=== PATIENT | female | born 1990 | race Caucasian/White ===

== ENCOUNTER 2017-01-22 16:24 | Inpatient (IN) | payer OTHER ==
[~2017-01-22] VITALS: Ht 165.1 cm; Wt 66.3 kg
[2017-01-22] MEDS ORDERED: ACET-1311 PO (17:11)
[2017-01-22] MEDS ORDERED: GUAISYP4 PO (17:12)
[2017-01-22] MEDS ORDERED: NF406 PO (17:13)
[2017-01-22] MEDS ORDERED: MoRPHine SULFATE 4 MG/ML 1 ML CARP\\VIAL IV STA (17:19)
[2017-01-22] MEDS ORDERED: SODIUM CHLORIDE 0.9% 1000ML 1,000 ML IV STA ×2 (17:19→19:21)
[2017-01-22] MEDS ORDERED: ONDANSETRON INJ 2 MG/ML 2 ML VIAL IV STA (17:19)
--- NOTE | 2017-01-22 17:47 | DIAGNOSTIC IMAGING REPORT ---
CHEST ONE VIEW PORTABLE CLINICAL HISTORY: Fever. Shortness of breath. 18 weeks . COMPARISON STUDY: No previous studies for comparison. TECHNIQUE: The abdomen and pelvis were double shielded due to portable upright AP chest radiograph was obtained. FINDINGS: Kyphotic positioning is noted. Lung volumes are normal. There is no consolidation. There is no evidence of pulmonary edema. Cardiomediastinal silhouette is normal. No pneumothorax or pleural effusion is identified. IMPRESSION: No acute cardiopulmonary findings. Electronically signed by: Vinh Trujillo M.D. 01/22/2017 5:45 PM Dictated Date/Time: 01/22/2017 5:44 PM
[2017-01-22] MEDS ORDERED: ADENOSINE IV SOLN 3 MG/ML 2 ML VIAL ONE (18:16)
[2017-01-22] MEDS ORDERED: VANCOMYCIN INJ 1,000 MG in SODIUM CHLORIDE 0.9% 250ML 250 ML IV STA (18:28)
[2017-01-22] MEDS ORDERED: CEFTRIAXONE SOD INJ 1 GM ADDVIAL IV STA (18:28)
[2017-01-22 18:29] LABS: BUN/CREATININE RATIO 12.5 (10-20); CALCIUM 9.1 mg/dl (8.5-10.1); CREATININE 1.5 mg/dl (0.60-1.20)
[2017-01-22 18:40] LABS: MEAN CELL VOLUME 80.5 fL (80-100); MEAN CORPUSCULAR HEMOGLOBIN 29.3 pg (25-34); MEAN CORPUSCULAR HGB CONC 36.4 g/dl (32-36); MEAN PLATELET VOLUME 10.6 fL (7.4-10.4); PLATELET COUNT 261 K/uL (130-400); WHITE BLOOD COUNT 13.86 K/uL (4.8-10.8)
[2017-01-22 18:41] LABS: BASO % 0.2 %; BASO ABS # 0.03 K/uL (0-0.2); COMPLETE YES; DOHLE BODIES 1+; EOS % 0.1 %; IG% 7.2 %; LARGE PLATELETS 1+; LYMPH % 4.8 %; LYMPH ABS # 0.66 K/uL (1.2-3.4); MONO % 2.4 %; NEUT % 85.3 %; PLT ESTIMATE NORMAL; TOXIC GRANULATION 1+
[2017-01-22] MEDS ORDERED: VANCOMYCIN 1GM/270ML NSS ONE (18:57)
[2017-01-22 19:07] LABS: URINE APPEARANCE TURBID (CLEAR); URINE COLOR DK YELLOW; URINE EPITHELIAL CELL AUTO >30 /lpf (0-5); URINE NITRITE POS (NEG); URINE SPECIFIC GRAVITY 1.023 (1.000-1.030); UROBILINOGEN NEG (NEG)
[2017-01-22 19:12] LABS: MANUAL MICROSCOPIC REQUIRED? NO; REVIEW REQ? YES; URINE BILIRUBIN NEG (NEG)
[2017-01-22] MEDS ORDERED: SODIUM CHLORIDE 0.9% 500ML 500 ML IV STA (19:21)
[2017-01-22 19:24] LABS: URINE PATH CASTS 0-3 GRANULAR CASTS /lpf (0)
--- NOTE | 2017-01-22 20:07 | DIAGNOSTIC IMAGING REPORT ---
BILATERAL LOWER EXTREMITY VENOUS DOPPLER CLINICAL HISTORY: Tachycardia. Shortness of breath. 18 weeks . COMPARISON STUDY: No previous studies for comparison. TECHNIQUE: Sonography of the deep venous system of the bilateral lower extremities was performed. Compression and augmentation were evaluated. FINDINGS: The bilateral common femoral, superficial femoral and popliteal veins were compressible. Augmentation was normal. Flow was shown within the deep calf vessels. IMPRESSION: No evidence of deep venous thrombus within the bilateral lower extremities. Electronically signed by: Vinh Trujillo M.D. 01/22/2017 8:06 PM Dictated Date/Time: 01/22/2017 8:05 PM
--- NOTE | 2017-01-22 20:12 | DIAGNOSTIC IMAGING REPORT ---
ABDOMEN COMPLETE (US) CLINICAL HISTORY: Right flank pain, fever, nausea and vomiting. 8 weeks . COMPARISON STUDY: No previous studies for comparison. FINDINGS: The liver is sonographically normal. No gallbladder wall thickening is present. There are no gallstones. There is no biliary ductal dilatation. The pancreas is obscured by overlying bowel gas. The spleen is mildly enlarged, measuring 15.6 cm in maximal dimension. There is mild right hydronephrosis. No calculi are identified by sonography. The left kidney is normal. There is no left hydronephrosis. The left ureteral jet was visualized. The right ureteral jet was not visualized. IMPRESSION: 1. Mild right hydronephrosis. Nonvisualization of the right ureteral jet. Slight increased echogenicity of the right kidney. 2. No left hydronephrosis. 3. No gallstones or biliary ductal dilatation. 4. Obscured pancreas due to overlying bowel gas. Electronically signed by: Vinh Trujillo M.D. 01/22/2017 8:10 PM Dictated Date/Time: 01/22/2017 8:08 PM
[2017-01-22] MEDS ORDERED: ACETAMINOPHEN 325 MG TAB PO PRN ×2 (20:15→21:30)
[2017-01-22 20:35] LABS: INFLUENZA A PCR Neg for Influ A (NEG); INFLUENZA B PCR Neg for Influ B (NEG)
[2017-01-22 20:46] LABS: PARTIAL THROMBOPLASTIN RATIO 1.5
[2017-01-22] MEDS ORDERED: ACETAMINOPHEN 325 MG TAB PO STA (20:50)
[2017-01-22 21:00] LABS: MAGNESIUM 2.2 mg/dl (1.8-2.4); THYROID STIMULATING HORMONE 0.738 uIu/ml (0.300-4.500)
[2017-01-22 21:25] VITALS: BP 104/69; PULSE 125; TEMP 36.8; O2SAT 97; Ht 165.1 cm; Wt 66.3 kg
[2017-01-22] MEDS ORDERED: NSS + 20MEQ KCL 1000ML 1,000 ML IV SCH (21:30)
[2017-01-22 21:33] VITALS: O2SAT 97
[2017-01-22] MEDS ORDERED: POTASSIUM CHLORIDE 10 MEQ TABCR PO STA (21:34)
[2017-01-22] MEDS ORDERED: METRONIDAZOLE / NSS 500 MG in PREMIXED NSS 100 ML IV ONE (21:39)
[2017-01-22] MEDS ORDERED: ONDANSETRON INJ 2 MG/ML 2 ML VIAL IV PRN (21:45)
[2017-01-22] MEDS ORDERED: ACETAMINOPHEN/CODEINE 300/30MG TAB PO PRN (21:45)
[2017-01-22] MEDS ORDERED: NSS + 20MEQ KCL 1000ML 1,000 ML IV ONE (21:45)
[2017-01-22] MEDS ORDERED: AZITHROMYCIN 250 MG TAB PO STA (21:46)
[2017-01-22 23:46] VITALS: BP 92/55; PULSE 104; TEMP 36.4; O2SAT 96
--- NOTE | 2017-01-23 01:29 | GYNECOLOGICAL CONSULTATION ---
DATE OF CONSULTATION: 01/22/2017 REASON FOR CONSULT: Admitted for sepsis/UTI and at 18 weeks. HISTORY OF PRESENT ILLNESS: The patient is a 26-year-old G2, P1-0-0-1 at 18 weeks and 1 day of gestation by last menstrual period of 09/17/2016. She has been having fever, cough and flu symptoms as well as nausea, vomiting and diarrhea for the last 5 days. She presented to her primary care today and she was recommended to come to ER due to the fever and tachycardia. She states she has been feeling flank pain, low back pain for weeks. She was treated for UTI on 12/15/2016, when her urine culture was positive for E. coli. She was on Macrobid for 10 days. She had a repeat culture on January 05, which was contaminated with karoline and revealed lactobacillus species. Currently she denies any symptoms of UTI including dysuria, frequency, urgency, color change in urine. She denies any cramping lower abdominal pain, vaginal discharge, itching, burning, spotting or vaginal bleeding. She reports movements. She denies any sick contact at home. She has been in good health otherwise. She was started on Tamiflu on January 18 for suspected flu, but her symptoms remained and her influenza cultures came negative today. Now she is being admitted under medicine for sepsis, possible UTI, kidney stone and gastroenteritis. She was placed on multiple antibiotics and she has been on telemetry. Her has been uncomplicated except above. She has not had an ultrasound during this . She was dated by her LMP which she was certain and regular. PAST MEDICAL HISTORY: As above. She denies any medical problems. PAST SURGICAL HISTORY: [place] teeth extraction. MEDICATIONS: vitamins and Tamiflu 75 mg. ALLERGIES: No known drug allergies. SOCIAL HISTORY: The patient is . She denies smoking, alcohol, or drug use. GYNECOLOGIC HISTORY: The patient denies any history of STDs including chlamydia, gonorrhea, herpes. She has been with same partner. OBSTETRICAL HISTORY: This is her second . She had full-term spontaneous vaginal delivery in September 2015, baby was a boy and viable without any complications. LABORATORIES: Her blood type is A positive, antibody screen negative. Urine culture was positive for E. coli. Rubella titer positive, RPR nonreactive, hepatitis B surface antigen negative, HIV negative. H\T\H was 13/36, platelets 245. GC, chlamydia cultures were negative. LABORATORY DATA: For today, white count is 13.8, H\T\H is 12/33. APTT is 39.6, elevated. PT ratio is 1.5. Chemistry: Her creatinine is 1.5. Her ALT, AST are normal. Lactic acid is 2.1, magnesium 2.2 and TSH is 0.7. Her urine shows 3+ protein, 1+ ketone, 3+ blood, nitrite positive, leukocyte esterase large positive, more than 30 white blood cells and red blood cells and positive for hyaline casts, granular casts and yeast. Serology is negative for influenza A and B. Her urine culture, blood culture are pending. IMAGING STUDIES: Her Doppler ultrasound of lower extremities are negative for DVT. She had abdominal ultrasound which showed mild right hydronephrosis. No ureteral jet on the right side. No left hydronephrosis, no gallstones or biliary duct dilatation. PHYSICAL EXAMINATION: GENERAL: The patient is alert, oriented x3, not in acute distress. VITAL SIGNS: Her temperature is 36.4, pulse is 120, respirations 18, blood pressure is 95/59, pulse ox is 97 on room air. CARDIOVASCULAR SYSTEM: S1, S2; RRR. Tachycardic. LUNGS: Clear to auscultation bilaterally. ABDOMEN: Soft, nontender, gravid, about 18 weeks' size. heart rate is 160. EXTREMITIES: Nontender, no edema. ASSESSMENT AND PLAN: The patient is a 26-year-old G2, P1-0-0-1 at 18 weeks and 1 day of gestation, admitted for possible urinary tract infection, kidney stones and sepsis. On telemetry and Multiple IV antibiotics ordered by medicine. Her blood and urine cultures are pending . Previable with no issues. heart rate is reassuring. Agree with plan, monitor and treat for urinary tract infection and symptomatic treatment for possible stones. Strain urine, obtain renal retroperitoneal ultrasound I will order OB ultrasound for dating and anatomy scan. We will follow up with daily heart rates. I discussed the antibiotics and safety of medications with Dr. Pham. All questions were answered. Thank you for this consult. NOEMY
[2017-01-23] MEDS ORDERED: TAMSULOSIN HCL 0.4 MG CAP PO ONE (01:56)
[2017-01-23 03:20] VITALS: BP 93/57; PULSE 104; TEMP 36.4; O2SAT 97
[2017-01-23 04:24] LABS: HEMATOCRIT 29.1 % (37-47); MEAN CORPUSCULAR HGB CONC 35.4 g/dl (32-36); MEAN PLATELET VOLUME 10.4 fL (7.4-10.4); PLATELET COUNT 245 K/uL (130-400); RED BLOOD COUNT 3.55 M/uL (4.2-5.4); WHITE BLOOD COUNT 12.29 K/uL (4.8-10.8)
[2017-01-23 04:45] LABS: COMPLETE YES; DOHLE BODIES 1+; ECHINOCYTES 1+; LYMPHOCYTE % 11.4 %; MYELOCYTE % 1.8 %; NEUTROPHILS % 85.9 %
[2017-01-23 04:55] LABS: BLOOD UREA NITROGEN 17 mg/dl (7-18); BUN/CREATININE RATIO 15.7 (10-20); CALCIUM 7.8 mg/dl (8.5-10.1); CARBON DIOXIDE 14 mmol/L (21-32); CHLORIDE 109 mmol/L (98-107); GLUCOSE 74 mg/dl (70-99); POTASSIUM 3.8 mmol/L (3.5-5.1); SODIUM 139 mmol/L (136-145)
--- NOTE | 2017-01-23 05:01 | HISTORY & PHYSICAL EXAMINATION ---
DATE OF ADMISSION: 01/22/2017 Patient has no primary care doctor. She intends to follow up at [facility] for PCP service upon discharge. CHIEF COMPLAINT: Fever, chills, right-sided pain. HISTORY OF PRESENT ILLNESS: No significant medical history. Patient currently 18 weeks . A week ago, the patient noted dry cough symptoms, fever, nausea, vomiting. No aspiration. Right upper quadrant pain, achy, going to the back. No dysuria. Loose stools noted. Recent course of outpatient antibiotics for possible UTI. Seen at [facility]. Treated for possible flu, not better. Patient denies chest pain but feels short of breath which she attributes to her fast heartbeat. In the Emergency Room, the patient received vancomycin and ceftriaxone for possible sepsis. MEDICAL HISTORY: As above. SURGERIES: Dental surgery. HOME MEDICATIONS: Tamiflu, Tylenol. ALLERGIES: No known drug allergies. FAMILY HISTORY: Kidney stones. PERSONAL AND SOCIAL HISTORY: Nonsmoker, no chronic intake of alcoholic beverages. 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 REVIEW OF SYSTEMS: As per HPI, all other ROS negative. PHYSICAL EXAMINATION: VITAL SIGNS: Blood pressure was noted to be 105/57, pulse rate 107, RR 22, temp 36.7, sats 100 on 2 liters. GENERAL: Noted to be uncomfortable, anxious, minimal respiratory distress. SKIN: Normal color. HEENT: [place] palpebral conjunctivae. Dry mucosa. NECK: No JVD. supple CHEST: Decreased breath sounds. HEART: Tachycardic. ABDOMEN: Right-sided tenderness BACK R flank tenderness. EXTREMITIES: No edema, no tenderness. NEUROLOGIC: No gross focality. LABORATORY DATA: Hemoglobin was noted to be 12, hematocrit 30, white cell count 13.8, platelets 261. Sodium 130, potassium 3, chloride 98, CO2 13, BUN 90, creatinine 1.5, glucose was noted to be 88. Lactic acid was 2.1. Abdominal ultrasound showed mild right hydronephrosis, nonvisualization of right ureter. UA, nitrite positive, urine WBC positive. Chest x-ray showed no acute cardiopulmonary findings. EKG, sinus tachycardia. LE Venous Dopplers, no DVT. ASSESSMENT: 1. Chest pain, shortness of breath rule out pulmonary embolism. 2. Sepsis. Possible sources : complicated UTI, poss kidney stone. atypical pneumonia. diarrhea ro Cdifficile, recent outpx antibiotics. 3. Acute renal failure secondary to illness, obstructive uropathy. 4. , 18 weeks gestation. 5. Hypokalemia secondary to emesis/diarrhea. PLAN: PCU. V/Q scan in the morning to rule out PE. Replace potassium. Check mag. Follow lactic acid. IV fluids. ff renal function Ceftriaxone for complicated UTI. Urology consult possible renal colic. Azithromycin for possible atypical pneumonia. Stool C. diff. Flagyl for presumptive C. diff in light of sepsis criteria. DC Flagyl if stool cdif negative [employer] consult for eval. DVT prophylaxis, on SCDs. Full code. ADDENDUM Case discussed with urologist on-call, Dr. Davis. He agrees w/ plan to do a CAT of the abdomen and pelvis to definitively rule out a kidney stone. May need transfer to a tertiary center if kidney stone found. NGUYEND
[2017-01-23] MEDS: NSS + 20MEQ KCL 1000ML 1,000 ML IV SCH ×2 (05:34→13:00)
--- NOTE | 2017-01-23 07:17 | DIAGNOSTIC IMAGING REPORT ---
CT SCAN OF THE ABDOMEN AND PELVIS WITHOUT CONTRAST CLINICAL HISTORY: Right flank pain. COMPARISON STUDY: No previous studies for comparison. TECHNIQUE: CT scan of the abdomen and pelvis was performed from the lung bases to the proximal femurs. Images are reviewed in the axial, sagittal, and coronal planes. IV contrast was not administered for this examination. CT DOSE: 643.48 mGy.cm FINDINGS: Lower chest: There are bibasal atelectatic changes. Liver: The unenhanced liver is normal in size, contour, and attenuation. There is no intrahepatic biliary ductal dilatation. Gallbladder: Unremarkable. Spleen: Mild splenomegaly measuring 14 cm Pancreas: Unremarkable. Adrenal glands: Unremarkable. Kidneys: There is right-sided hydronephrosis and right-sided perinephric stranding. There is right ureteral dilatation. There is an 8 mm calculus at the level the right ureteral vesicle junction. There are punctate bilateral renal calculi. Bowel: There are no transition zones indicate bowel obstruction. There is no acute diverticulitis. There are no findings to indicate acute appendicitis. Peritoneum: There is no intraperitoneal free air or abdominal ascites. There is a tiny fat-containing umbilical hernia Vasculature: The abdominal aorta is normal in course and caliber. Adenopathy: None. Pelvic viscera: There is a gravid uterus. Skeletal structures: No destructive osseous lesions are seen. IMPRESSION: 1. 8 mm calculus at the level of the right ureterovesical junction with secondary obstructive changes 2. Gravid uterus 3. Mild splenomegaly 4. Bibasilar atelectasis 5. Bilateral nephrolithiasis 6. No evidence of bowel obstruction. No evidence of free air Electronically signed by: Padilla Choi M.D. 01/23/2017 7:16 AM Dictated Date/Time: 01/23/2017 7:11 AM
--- NOTE | 2017-01-23 07:20 | Progress Note ---
Internal Med Progress Note Date of Service: Jan 23, 2017. Provider Documentation: AM developments : 1. Received call from nuclear med requesting VQ scan be cancelled to rule out PE as per radiologist's recommendations. Dr. Choi recommends CT PE study (w/ lead shield to decrease radiation exposure). 2. 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 Quintero) about px.. Service would be happy to accept px for poss emergent stent placement. Transfer unfortunately precluded by current [place] [facility] Requests that acceptance at other tertiary facilities be sought at this time. Will enlist help of [facility] Case Management. Will relay to AM provider. [facility] requesting for update on px disposition. Vital Signs: Date Time Temp Pulse Resp B/P Pulse Ox O2 Delivery O2 Flow Rate FiO2 01/23/17 08:14 36.4 126 20 106/71 98 Room Air 01/23/17 08:00 Room Air 01/23/17 04:01 Room Air 01/23/17 03:20 36.4 104 18 93/57 97 Room Air 01/23/17 00:02 Room Air 01/22/17 23:46 36.4 104 15 92/55 96 Room Air 01/22/17 22:00 Room Air 01/22/17 21:33 36.4 120 18 95/59 97 01/22/17 21:25 36.8 125 20 104/69 97 Room Air 01/22/17 18:54 37.7 137 16 105/57 100 Nasal Cannula 2.0 01/22/17 18:18 143 24 111/50 99 Nasal Cannula 2.0 01/22/17 17:55 98 Room Air 01/22/17 17:54 165 01/22/17 16:39 36.3 22 106/61 100 Room Air Lab Results: Results Past 24 Hours Test 01/22/17 17:55 01/22/17 20:32 01/23/17 04:19 Range/Units White Blood Count 13.86 12.29 4.8-10.8 K/uL Red Blood Count 4.10 3.55 4.2-5.4 M/uL Hemoglobin 12.0 10.3 12.0-16.0 g/dL Hematocrit 33.0 29.1 37-47 % Mean Corpuscular Volume 80.5 82.0 80-100 fL Mean Corpuscular Hemoglobin 29.3 29.0 25-34 pg Mean Corpuscular Hemoglobin Concent 36.4 35.4 32-36 g/dl Platelet Count 261 245 130-400 K/uL Mean Platelet Volume 10.6 10.4 7.4-10.4 fL Neutrophils (%) (Auto) 85.3 % Lymphocytes (%) (Auto) 4.8 % Monocytes (%) (Auto) 2.4 % Eosinophils (%) (Auto) 0.1 % Basophils (%) (Auto) 0.2 % Neutrophils # (Auto) 11.82 1.4-6.5 K/uL Lymphocytes # (Auto) 0.66 1.2-3.4 K/uL Monocytes # (Auto) 0.33 0.11-0.59 K/uL Eosinophils # (Auto) 0.02 0-0.5 K/uL Basophils # (Auto) 0.03 0-0.2 K/uL RDW Standard Deviation 38.9 41.9 36.4-46.3 fL RDW Coefficient of Variation 13.3 13.7 11.5-14.5 % Immature Granulocyte % (Auto) 7.2 % Immature Granulocyte # (Auto) 1.00 0.00-0.02 K/uL Toxic Granulation 1+ Dohle Bodies 1+ 1+ Platelet Estimate NORMAL Large Platelets 1+ Activated Partial Thromboplast Time 39.6 21.0-31.0 SECONDS Partial Thromboplastin Ratio 1.5 Sodium Level 132 139 136-145 mmol/L Potassium Level 3.0 3.8 3.5-5.1 mmol/L Chloride Level 98 109 98-107 mmol/L Carbon Dioxide Level 13 14 21-32 mmol/L Anion Gap 21.0 16.0 3-11 mmol/L Blood Urea Nitrogen 19 17 7-18 mg/dl Creatinine 1.50 1.10 0.60-1.20 mg/dl Est Creatinine Clear Calc Drug Dose 51.1 69.7 ml/min Estimated GFR () 55.2 80.2 Estimated GFR (Non- 47.6 69.2 BUN/Creatinine Ratio 12.5 15.7 10-20 Random Glucose 88 74 70-99 mg/dl Lactic Acid Level 2.1 0.6 0.4-2.0 mmol/L Calcium Level 9.1 7.8 8.5-10.1 mg/dl Magnesium Level 2.2 1.8-2.4 mg/dl Total Bilirubin 0.6 0.2-1 mg/dl Direct Bilirubin 0.2 0-0.2 mg/dl Aspartate Amino Transf (AST/SGOT) 25 15-37 U/L Alanine Aminotransferase (ALT/SGPT) 28 12-78 U/L Alkaline Phosphatase 155 45-117 U/L Total Protein 8.0 6.4-8.2 gm/dl Albumin 2.4 3.4-5.0 gm/dl Lipase 67 73-393 U/L Thyroid Stimulating Hormone (TSH) 0.738 0.300-4.500 uIu/ml Neutrophils % (Manual) 85.9 % Lymphocytes % (Manual) 11.4 % Monocytes % (Manual) 0.9 % Myelocytes % 1.8 % Neutrophils # (Manual) 10.56 1.4-6.5 K/uL Total Absolute Neutrophils 10.56 1.4-6.5 K/uL Lymphocytes # (Manual) 1.40 1.2-3.4 K/uL Total Absolute Lymphocytes 1.40 1.2-3.4 K/uL Monocytes # (Manual) 0.11 0.11-0.59 K/uL Myelocytes # 0.22 0-0 K/uL Echinocytes 1+ Troponin I < 0.015 0-0.045 ng/ml Microbiology Results 01/22/17 Blood Culture, Received Pending 01/22/17 Blood Culture, Received Pending 01/22/17 Urine Culture - Preliminary, Resulted Escherichia Coli
--- NOTE | 2017-01-23 07:52 | DIAGNOSTIC IMAGING REPORT ---
COMP>14 WEEKS SINGLE CLINICAL HISTORY: tract infection, sepsis. COMPARISON STUDY: No previous studies for comparison. FINDINGS: A single live fetus in variable presentation was identified. The placenta is anterolateral. The BPD measures 43 mm, the head circumference 157 mm, abdominal discomfort 126 mm, and the femur 26 mm. These measurements correspond to an estimated postmenstrual age of 18 weeks 2 days +/- 10 days. The estimated weight is 220 +/- 30 grams. The amount of fluid index was 15.8 cm. The maternal cervical length was 3.3 cm. The heart rate was 139. The intracranial contents were unremarkable. A four-chamber heart was visualized. A stomach was visualized. 2. kidneys were visualized. No anterior abdominal wall abnormalities were identified. The bladder was visualized. No spine abnormalities were demonstrated. IMPRESSION: Single live fetus in variable presentation. The estimated postmenstrual age is 18 weeks 2 days +/- 10 days. Electronically signed by: Padilla Choi M.D. 01/23/2017 7:51 AM Dictated Date/Time: 01/23/2017 7:47 AM
[2017-01-23 08:14] VITALS: BP 106/71; PULSE 126; TEMP 36.4; O2SAT 98
--- NOTE | 2017-01-23 08:30 | Urology Consultation ---
History General Date of Service: Jan 23, 2017. Chief Complaint: fever, right ureteral stone Primary Care Physician: No Doctor, Assigned Pt seen a urologist before?: No History of Present Illness 26 yo female, 18 weeks , presents to [facility] with c/o fevers as high as 105F x 2 days and several weeks of UTI symptoms and right flank pain. CT scan showing an 8mm right UVJ stone. She has no previous hx of stones. White count is 12.29. Cr is normal. Temperature as high as 37.7C on admission. She reports nausea and right flank pain this morning. Denies vomiting. Denies dysuria or hematuria. Imaging Imaging: CT Laboratory Last 24 Hours Test 01/22/17 17:55 01/22/17 20:32 01/23/17 04:19 White Blood Count 13.86 K/uL 12.29 K/uL Red Blood Count 4.10 M/uL 3.55 M/uL Hemoglobin 12.0 g/dL 10.3 g/dL Hematocrit 33.0 % 29.1 % Mean Corpuscular Volume 80.5 fL 82.0 fL Mean Corpuscular Hemoglobin 29.3 pg 29.0 pg Mean Corpuscular Hemoglobin Concent 36.4 g/dl 35.4 g/dl Platelet Count 261 K/uL 245 K/uL Mean Platelet Volume 10.6 fL 10.4 fL Neutrophils (%) (Auto) 85.3 % Lymphocytes (%) (Auto) 4.8 % Monocytes (%) (Auto) 2.4 % Eosinophils (%) (Auto) 0.1 % Basophils (%) (Auto) 0.2 % Neutrophils # (Auto) 11.82 K/uL Lymphocytes # (Auto) 0.66 K/uL Monocytes # (Auto) 0.33 K/uL Eosinophils # (Auto) 0.02 K/uL Basophils # (Auto) 0.03 K/uL RDW Standard Deviation 38.9 fL 41.9 fL RDW Coefficient of Variation 13.3 % 13.7 % Immature Granulocyte % (Auto) 7.2 % Immature Granulocyte # (Auto) 1.00 K/uL Toxic Granulation 1+ Dohle Bodies 1+ 1+ Platelet Estimate NORMAL Large Platelets 1+ Activated Partial Thromboplast Time 39.6 SECONDS Partial Thromboplastin Ratio 1.5 Sodium Level 132 mmol/L 139 mmol/L Potassium Level 3.0 mmol/L 3.8 mmol/L Chloride Level 98 mmol/L 109 mmol/L Carbon Dioxide Level 13 mmol/L 14 mmol/L Anion Gap 21.0 mmol/L 16.0 mmol/L Blood Urea Nitrogen 19 mg/dl 17 mg/dl Creatinine 1.50 mg/dl 1.10 mg/dl Est Creatinine Clear Calc Drug Dose 51.1 ml/min 69.7 ml/min Estimated GFR () 55.2 80.2 Estimated GFR (Non- 47.6 69.2 BUN/Creatinine Ratio 12.5 15.7 Random Glucose 88 mg/dl 74 mg/dl Lactic Acid Level 2.1 mmol/L 0.6 mmol/L Calcium Level 9.1 mg/dl 7.8 mg/dl Magnesium Level 2.2 mg/dl Total Bilirubin 0.6 mg/dl Direct Bilirubin 0.2 mg/dl Aspartate Amino Transf (AST/SGOT) 25 U/L Alanine Aminotransferase (ALT/SGPT) 28 U/L Alkaline Phosphatase 155 U/L Total Protein 8.0 gm/dl Albumin 2.4 gm/dl Lipase 67 U/L Thyroid Stimulating Hormone (TSH) 0.738 uIu/ml Neutrophils % (Manual) 85.9 % Lymphocytes % (Manual) 11.4 % Monocytes % (Manual) 0.9 % Myelocytes % 1.8 % Neutrophils # (Manual) 10.56 K/uL Total Absolute Neutrophils 10.56 K/uL Lymphocytes # (Manual) 1.40 K/uL Total Absolute Lymphocytes 1.40 K/uL Monocytes # (Manual) 0.11 K/uL Myelocytes # 0.22 K/uL Echinocytes 1+ Troponin I < 0.015 ng/ml Past History no pertinent history Past Surgical History: other (dental surgery) Family History nephrolithiasis Social History Hx Tobacco Use In Past Year?: No Smoking: non-smoker Alcohol: no current use Drug use: none Marital status: Housing status: lives with family Occupation status: employed Allergies Coded Allergies: No Known Allergies (Unverified , 01/22/17) Medications Home Medications: Home Meds and Scripts Medications Dose Route/Sig Max Daily Dose Days Date Category Tamiflu (Oseltamivir Phosphate) 75 Mg Cap 75 Mg PO BID 01/22/17 Reported Robitussin-Ac Syrup (Codeine Phosphate/Guaifenesin) Syrp 20 Ml PO Q4H PRN 01/22/17 Reported Tylenol (Acetaminophen) 325 Mg Tab 650 Mg PO Q4H PRN 01/22/17 Reported Inpatient Medications: Current Inpatient Medications Medications (Trade) Dose Ordered Sig/Ivory Route Start Time Stop Time Status Last Admin Dose Admin Acetaminophen (Tylenol Tab) 650 mg Q6H PRN PO 01/22/17 20:15 Acetaminophen 650 mg 650 mg Q4H PRN PO 01/22/17 21:30 02/21/17 21:29 Metronidazole/Prmx (Flagyl / Nss/ Premixed Nss) 100 ml @ 100 mls/hr Q8H IV 01/23/17 08:45 02/02/17 08:44 01/23/17 07:36 100 MLS/HR Azithromycin (Zithromax Tab) 250 mg QAM PO 01/23/17 09:00 01/27/17 08:59 01/23/17 07:37 250 MG Ondansetron HCl (Zofran Inj) 4 mg Q6H PRN IV 01/22/17 21:45 02/21/17 21:44 Acetaminophen/ Codeine Phosphate 1 tab 1 tab Q4H PRN PO 01/22/17 21:45 02/21/17 21:44 Potassium Chloride/Sodium Chloride (Nss + 20meq KCl 1000ml) 1,000 ml @ 100 mls/hr Q10H IV 01/23/17 03:00 02/22/17 02:59 01/23/17 05:34 100 MLS/HR Tamsulosin HCl (Flomax Cap) 0.4 mg QAM PO 01/24/17 09:00 02/23/17 08:59 Review of Systems Review of Systems Constitutional: No chills, No fever Eyes: No double vision Neurological: No dizzy Endocrine: No excessive thirst Gastrointestinal: + abdominal pain (RLQ and flank), + nausea, No vomiting Cardiovascular: No chest pain Respiratory: No shortness of breath Skin: No rash Musculoskeletal: No back pain Female : No blood in urine, No painful urination Physical Exam Vital Signs: Vital Signs Past 12 Hours Date Time Temp Pulse Resp B/P Pulse Ox O2 Delivery O2 Flow Rate FiO2 01/23/17 08:14 36.4 126 20 106/71 98 Room Air 01/23/17 04:01 Room Air 01/23/17 03:20 36.4 104 18 93/57 97 Room Air 01/23/17 00:02 Room Air 01/22/17 23:46 36.4 104 15 92/55 96 Room Air 01/22/17 22:00 Room Air 01/22/17 21:33 36.4 120 18 95/59 97 01/22/17 21:25 36.8 125 20 104/69 97 Room Air Physical Exam: General Appearance: no apparent distress Eyes: bilateral eyes normal inspection ENT: hearing grossly normal Neck: no JVD Respiratory/Chest: no respiratory distress, no accessory muscle use Cardiovascular: no JVD Extremities: normal inspection Neurologic/Psychiatric: alert, normal mood/affect, oriented x 3 Skin: normal color Assessment & Plan Assessment & Plan A/P: 18 week female with 8mm right UVJ stone with pain and fevers In the setting of intermittent fevers, tachycardia, and hypotension, I have recommended she be transferred to [place] for urgent PCN placement. Unfortunately [facility] does not have an interventional radiologist in house to provide this service for her, and stent placement would require further radiation to the fetus and multiple stent changes every few weeks until she delivers. I have discussed this with the hospitalist Dr. Lao. Thanks for the consult. Can f/u with her on an outpatient basis for stone management in the future. Agree with transfer Bruno Van
[2017-01-23] MEDS ORDERED: METRONIDAZOLE / NSS 500 MG in PREMIXED NSS 100 ML IV SCH (08:45)
[2017-01-23] MEDS ORDERED: AZITHROMYCIN 250 MG TAB PO SCH (09:00)
[2017-01-23] MEDS ORDERED: OPTIRAY 320 IV PRN (10:30)
--- NOTE | 2017-01-23 10:32 | DIAGNOSTIC IMAGING REPORT ---
CHEST CTA for PULMONARY ARTERIES CT DOSE: 446.83 mGycm HISTORY: Sepsis. Short of breath. TECHNIQUE: Multiaxial CT images of the chest were performed following the intravenous administration of contrast to evaluate the pulmonary arteries. Maximal intensity projection images were also obtained. COMPARISON STUDY: Abdomen and pelvis CT 01/23/2017. FINDINGS: Normal caliber thoracic aorta with no evidence for dissection. The heart is normal in size. No pleural or pericardial effusions. Respiratory motion artifact results in nondiagnostic evaluation of the majority of the bilateral lower lobe segmental pulmonary arteries. However, the remaining pulmonary arteries show no filling defects to suggest pulmonary embolus. No pneumothorax. The central airways are patent. Patchy/linear densities within the bases of the bilateral lower lobes, right greater than left. This favors atelectasis. However, a pneumonia could also have a similar appearance. The visualized liver and spleen are unremarkable. Persistent right-sided hydronephrosis which is only partially visualized. No mediastinal or hilar lymphadenopathy. IMPRESSION: 1. No evidence for pulmonary embolus with limitations as described above. 2. Persistent right-sided hydronephrosis which is only partially visualized on this study. 3. Patchy/linear densities within the bases of the bilateral lower lobes, right greater than left. This favors atelectasis. However, a pneumonia could also have a similar appearance. Electronically signed by: David Vargas M.D. 01/23/2017 10:31 AM Dictated Date/Time: 01/23/2017 10:21 AM
--- NOTE | 2017-01-23 11:27 | Discharge Instructions ---
Discharge Instructions Date of Service Jan 23, 2017. Admission Reason for Admission: Sepsis Discharge Discharge Diagnosis / Problem: Sepsis, 8mm R stone UVJ, possible pneumonia, tachycardia, 18 week gestation Discharge Goals Goal(s): Decrease discomfort, Improve function Activity Recommendations Activity Limitations: resume your previous activity . Instructions / Follow-Up Instructions / Follow-Up Patient to be continued with Azithromycin orally Flagyl IV IVFs analgesics PRN Flomax To be transferred for possible percutaneous nephrostomy tubes Current Hospital Diet Patient's current hospital diet: Clear Liquid Diet Discharge Diet Recommended Diet: Clear Liquid Diet Pending Studies Studies pending at discharge: no Medical Emergencies . Who to Call and When: Medical Emergencies: If at any time you feel your situation is an emergency, please call 911 immediately. . Non-Emergent Contact Non-Emergency issues call your: Primary Care Provider Call Non-Emergent contact if: you have a fever, your pain is not controlled, your pain is worsening . . "Provider Documentation" section prepared by Oxana Lao. VTE Core Measure Inpt VTE Proph given/why not?: SCD's
--- NOTE | 2017-01-23 11:35 | Discharge Summary ---
Discharge Summary Date of Service Jan 23, 2017. Discharge Summary Admission Date: Jan 22, 2017 at 20:10 Discharge Date: Jan 23, 2017 Discharge Disposition: Acute care facility Principal Diagnosis: Right 8mm UVJ stone Sepsis UTI possible pneumonia tachycardia Admission Information Physical Exam (per Admitting): DATE OF ADMISSION: 01/22/2017 Patient has no primary care doctor. She intends to follow up at [facility] for PCP service upon discharge. CHIEF COMPLAINT: Fever, chills, right-sided pain. HISTORY OF PRESENT ILLNESS: No significant medical history. Patient currently 18 weeks . A week ago, the patient noted dry cough symptoms, fever, nausea, vomiting. No aspiration. Right upper quadrant pain, achy, going to the back. No dysuria. Loose stools noted. Recent course of outpatient antibiotics for possible UTI. Seen at [facility]. Treated for possible flu, not better. Patient denies chest pain but feels short of breath which she attributes to her fast heartbeat. In the Emergency Room, the patient received vancomycin and ceftriaxone for possible sepsis. MEDICAL HISTORY: As above. SURGERIES: Dental surgery. HOME MEDICATIONS: Tamiflu, Tylenol. ALLERGIES: No known drug allergies. FAMILY HISTORY: Kidney stones. PERSONAL AND SOCIAL HISTORY: Nonsmoker, no chronic intake of alcoholic beverages. 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 REVIEW OF SYSTEMS: As per HPI, all other ROS negative. PHYSICAL EXAMINATION: VITAL SIGNS: Blood pressure was noted to be 105/57, pulse rate 107, RR 22, temp 36.7, sats 100 on 2 liters. GENERAL: Noted to be uncomfortable, anxious, minimal respiratory distress. SKIN: Normal color. HEENT: [place] palpebral conjunctivae. Dry mucosa. NECK: No JVD. supple CHEST: Decreased breath sounds. HEART: Tachycardic. ABDOMEN: Right-sided tenderness BACK R flank tenderness. EXTREMITIES: No edema, no tenderness. NEUROLOGIC: No gross focality. LABORATORY DATA: Hemoglobin was noted to be 12, hematocrit 30, white cell count 13.8, platelets 261. Sodium 130, potassium 3, chloride 98, CO2 13, BUN 90, creatinine 1.5, glucose was noted to be 88. Lactic acid was 2.1. Abdominal ultrasound showed mild right hydronephrosis, nonvisualization of right ureter. UA, nitrite positive, urine WBC positive. Chest x-ray showed no acute cardiopulmonary findings. EKG, sinus tachycardia. LE Venous Dopplers, no DVT. ASSESSMENT: 1. Chest pain, shortness of breath rule out pulmonary embolism. 2. Sepsis. Possible sources : complicated UTI, poss kidney stone. atypical pneumonia. diarrhea ro Cdifficile, recent outpx antibiotics. 3. Acute renal failure secondary to illness, obstructive uropathy. 4. , 18 weeks gestation. 5. Hypokalemia secondary to emesis/diarrhea. PLAN: PCU. V/Q scan in the morning to rule out PE. Replace potassium. Check mag. Follow lactic acid. IV fluids. ff renal function Ceftriaxone for complicated UTI. Urology consult possible renal colic. Azithromycin for possible atypical pneumonia. Stool C. diff. Flagyl for presumptive C. diff in light of sepsis criteria. DC Flagyl if stool cdif negative VENEER DRIER TAILER consult for eval. DVT prophylaxis, on SCDs. Full code. ADDENDUM Case discussed with urologist on-call, Dr. Davis. He agrees w/ plan to do a CAT of the abdomen and pelvis to definitively rule out a kidney stone. May need transfer to a tertiary center if kidney stone found. Hospital Course This is a 26 year old female, currently 18 week gestation presents with a few week history of fevers/chills, right sided pain. She had a CT of the abdomen/ pelvis done showing 8mm stone at the right UVJ. Urology was consulted and determination made to transfer patient for possible percutaneous nephrostomy tube placement by interventional radiology. Patient with HRs in the 140s-150s - was given adenosine in the ER due to SVT. CTA was performed and PE ruled out. Shows a possible pneumonia. Symptoms of cough persist. Urine culture - E. coli; sensitivities pending Total time spent on discharge = 45 minutes This includes examination of the patient, discharge planning, medication reconciliation, and communication with other providers. Discharge Instructions Patient to be continued with Azithromycin orally Flagyl IV IVFs analgesics PRN Flomax To be transferred for possible percutaneous nephrostomy tubes
[2017-01-23 11:52] VITALS: BP 116/70; PULSE 145; TEMP 36.9; O2SAT 100
[2017-01-23] MEDS ORDERED: CEFTRIAXONE SOD INJ 1 GM in DEXTROSE 5% ADD-VANTAGE 50ML 50 ML IV STA (13:00)
--- NOTE | 2017-01-23 13:01 | EMERGENCY ROOM VISIT NOTE ---
ED Visit Note 26-year-old female with a kidney stone and urinalysis consistent with infection. The patient may also have pneumonia. The patient's chart was handed to me for transfer orders. The patient is currently on Zithromax and Flagyl which may not be adequate for pyelonephritis. Dr. Lao will add Rocephin prior to her departure. I also increased her IV fluids.
[2017-01-24] MEDS ORDERED: TAMSULOSIN HCL 0.4 MG CAP PO SCH (09:00)
--- NOTE | 2017-02-05 07:01 | EMERGENCY ROOM VISIT NOTE ---
History First contact with patient: 17:09 Chief Complaint: FEVER Stated Complaint: FEVER UP TO 105, FLANK PAIN, DEHYDRATED-18WKS PREG History of Present Illness The patient is a 26 year old female who is 18 weeks presents to the Emergency Room with complaints of right flank pain, fever, nausea, vomiting and diarrhea. The patient states that her symptoms started on Sunday. She went to [facility] and was prescribed Tamiflu. The patient states that her temperature has gone up to 105.2. Her last dose of Tylenol was 30 minutes before arrival. The patient states that she has been able to keep some fluids down today. She has not had any vomiting but did have loose bowel movements. The patient describes her pain as being a sharp pain in the right flank area. The patient denies any urinary symptoms of frequency, urgency or dysuria. The patient denies any hematuria. The patient denies any history of kidney stones but admits that her mother has kidney stones. The patient contacted her COMMODITY LOAN CLERK her about her symptoms and was told to see her PCP. She went to [facility] today and was told to come to the emergency room. Review of Systems 10 system review was performed and was negative unless stated otherwise history of present illness. Past Medical/Surgical History Medical Problems: (1) Sepsis No significant past medical history. Social History Smoking Status: Never Smoker Smokeless Tobacco Use: No Alcohol Use: none Drug Use: none Marital Status: Housing Status: lives with family Current/Historical Medications Scheduled Oseltamivir Phosphate (Tamiflu), 75 MG PO BID Scheduled PRN Acetaminophen (Tylenol), 650 MG PO Q4H PRN for Pain or Fever Guaifenesin/Codeine (Robitussin-Ac Syrup), 20 ML PO Q4H PRN for Cough Allergies Coded Allergies: No Known Allergies (Unverified , 01/22/17) Physical Exam Vital Signs Date Time Temp Pulse Resp B/P Pulse Ox O2 Delivery O2 Flow Rate FiO2 01/22/17 18:54 37.7 137 16 105/57 100 Nasal Cannula 2.0 01/22/17 18:18 143 24 111/50 99 Nasal Cannula 2.0 01/22/17 17:55 98 Room Air 01/22/17 17:54 165 01/22/17 16:39 36.3 22 106/61 100 Room Air Physical Exam PHYSICAL EXAM: Vital Signs were reviewed: Temperature 36.3, blood pressure 106/ 61, pulse 124, respiration rate 22 Reviewed Nurse's notes and agree. Oxygen saturation is 100 % on room air which is normal . GENERAL: 26-year-old white female appears in some distress secondary to all her symptoms. MENTAL STATUS: Alert, oriented, coherent. EARS: Canals clear. TMs good light reflex, no erythema or fluid level noted. NOSE: Nasal mucosa with minimal erythema engorgement. PHARYNX: No erythema, no edema noted. No exudate noted. Airway is adequate. NECK: Supple, non-tender. No lymphadenopathy noted. LUNGS: Clear to auscultation without wheezes rales or rhonchi. CARDIAC: Tachycardic at a rate of 124, normal rhythm without murmur. BACK: No CVA tenderness noted. ABDOMEN: Firm, consistent with . No palpable tenderness .SKIN: No rashes noted. Medical Decision & Procedures ER Provider Diagnostic Interpretation: CHEST ONE VIEW PORTABLE CLINICAL HISTORY: Fever. Shortness of breath. 18 weeks . COMPARISON STUDY: No previous studies for comparison. TECHNIQUE: The abdomen and pelvis were double shielded due to portable upright AP chest radiograph was obtained. FINDINGS: Kyphotic positioning is noted. Lung volumes are normal. There is no consolidation. There is no evidence of pulmonary edema. Cardiomediastinal silhouette is normal. No pneumothorax or pleural effusion is identified. IMPRESSION: No acute cardiopulmonary findings. BILATERAL LOWER EXTREMITY VENOUS DOPPLER CLINICAL HISTORY: Tachycardia. Shortness of breath. 18 weeks . COMPARISON STUDY: No previous studies for comparison. TECHNIQUE: Sonography of the deep venous system of the bilateral lower extremities was performed. Compression and augmentation were evaluated. FINDINGS: The bilateral common femoral, superficial femoral and popliteal veins were compressible. Augmentation was normal. Flow was shown within the deep calf vessels. IMPRESSION: No evidence of deep venous thrombus within the bilateral lower extremities. Electronically signed by: Vinh Trujillo M.D. 01/22/2017 8:06 PM Electronically signed by: Vinh Trujillo M.D. 01/22/2017 5:45 PM Dictated Date/Time: 01/22/2017 5:44 PM ABDOMEN COMPLETE (US) CLINICAL HISTORY: Right flank pain, fever, nausea and vomiting. 8 weeks . COMPARISON STUDY: No previous studies for comparison. FINDINGS: The liver is sonographically normal. No gallbladder wall thickening is present. There are no gallstones. There is no biliary ductal dilatation. The pancreas is obscured by overlying bowel gas. The spleen is mildly enlarged, measuring 15.6 cm in maximal dimension. There is mild right hydronephrosis. No calculi are identified by sonography. The left kidney is normal. There is no left hydronephrosis. The left ureteral jet was visualized. The right ureteral jet was not visualized. IMPRESSION: 1. Mild right hydronephrosis. Nonvisualization of the right ureteral jet. Slight increased echogenicity of the right kidney. 2. No left hydronephrosis. 3. No gallstones or biliary ductal dilatation. 4. Obscured pancreas due to overlying bowel gas. Electronically signed by: Vinh Trujillo M.D. 01/22/2017 8:10 PM Dictated Date/Time: 01/22/2017 8:08 PM Laboratory Results Test 01/22/17 00:00 01/22/17 17:55 Urine Color DK YELLOW Urine Appearance TURBID (CLEAR) Urine pH 5.0 (4.5-7.5) Urine Specific [place] 1.023 (1.000-1.030) Urine Protein 3+ (NEG) Urine Glucose (UA) NEG (NEG) Urine Ketones 1+ (NEG) Urine Occult Blood 3+ (NEG) Urine Nitrite POS (NEG) Urine Bilirubin NEG (NEG) Urine Urobilinogen NEG (NEG) Urine Leukocyte Esterase LARGE (NEG) Urine WBC (Auto) >30 /hpf (0-5) Urine RBC (Auto) >30 /hpf (0-4) Urine Hyaline Casts (Auto) 10-30 /lpf (0-5) Urine Epithelial Cells (Auto) >30 /lpf (0-5) Urine Bacteria (Auto) NEG (NEG) Urine Pathogenic Casts 0-3 GRANULAR CASTS /lpf (0) Urine Yeast (Auto) PRESENT (NONE PRSENT) Influenza Type A (RT-PCR) Neg for Influ A (NEG) Influenza Type B (RT-PCR) Neg for Influ B (NEG) Immature Granulocyte % (Auto) 7.2 % White Blood Count 13.86 K/uL (4.8-10.8) Red Blood Count 4.10 M/uL (4.2-5.4) Hemoglobin 12.0 g/dL (12.0-16.0) Hematocrit 33.0 % (37-47) Mean Corpuscular Volume 80.5 fL (80-100) Mean Corpuscular Hemoglobin 29.3 pg (25-34) Mean Corpuscular Hemoglobin Concent 36.4 g/dl (32-36) Platelet Count 261 K/uL (130-400) Mean Platelet Volume 10.6 fL (7.4-10.4) Neutrophils (%) (Auto) 85.3 % Lymphocytes (%) (Auto) 4.8 % Monocytes (%) (Auto) 2.4 % Eosinophils (%) (Auto) 0.1 % Basophils (%) (Auto) 0.2 % Neutrophils # (Auto) 11.82 K/uL (1.4-6.5) Lymphocytes # (Auto) 0.66 K/uL (1.2-3.4) Monocytes # (Auto) 0.33 K/uL (0.11-0.59) Eosinophils # (Auto) 0.02 K/uL (0-0.5) Basophils # (Auto) 0.03 K/uL (0-0.2) Immature Granulocyte # (Auto) 1.00 K/uL (0.00-0.02) Toxic Granulation 1+ Platelet Estimate NORMAL Large Platelets 1+ Activated Partial Thromboplast Time 39.6 SECONDS (21.0-31.0) Partial Thromboplastin Ratio 1.5 Magnesium Level 2.2 mg/dl (1.8-2.4) Total Bilirubin 0.6 mg/dl (0.2-1) Direct Bilirubin 0.2 mg/dl (0-0.2) Aspartate Amino Transf (AST/SGOT) 25 U/L (15-37) Alanine Aminotransferase (ALT/SGPT) 28 U/L (12-78) Alkaline Phosphatase 155 U/L (45-117) Total Protein 8.0 gm/dl (6.4-8.2) Albumin 2.4 gm/dl (3.4-5.0) Lipase 67 U/L (73-393) Thyroid Stimulating Hormone (TSH) 0.738 uIu/ml (0.300-4.500) Date/Time Source Procedure Growth Status 01/22/17 18:30 Blood Blood Culture - Final NO GROWTH Complete 01/22/17 18:40 Urine,Catheterized Urine Culture - Final Escherichia Coli Complete Medications Administered Medications (Trade) Dose Ordered Sig/Ivory Route Start Time Stop Time Status Last Admin Dose Admin Sodium Chloride (Nss 1000ml) 1,000 ml @ 999 mls/hr Q1H1M STAT IV 01/22/17 17:19 01/22/17 18:19 DC 01/22/17 18:07 999 MLS/HR Ondansetron HCl (Zofran Inj) 4 mg NOW STAT IV 01/22/17 17:19 01/22/17 17:24 DC 01/22/17 18:07 4 MG Morphine Sulfate (MoRPHine SULFATE INJ) 4 mg NOW STAT IV 01/22/17 17:19 01/22/17 17:24 DC 01/22/17 18:08 4 MG Adenosine 18 mg 18 mg STK-MED ONCE .ROUTE 01/22/17 18:16 01/22/17 18:17 DC 01/22/17 18:20 18 MG Vancomycin HCl/ Sodium Chloride (Vancomycin Inj/ Nss 250ml) 270 ml @ 125 mls/hr NOW STAT IV 01/22/17 18:28 01/22/17 20:37 DC 01/22/17 18:56 125 MLS/HR Ceftriaxone Sodium 1 gm 1 gm NOW STAT IV 01/22/17 18:28 01/22/17 18:32 DC 01/22/17 18:47 1 GM Sodium Chloride 1,000 ml @ 999 mls/hr Q1H1M STAT IV 01/22/17 19:21 01/22/17 20:21 DC 01/22/17 19:21 999 MLS/HR Sodium Chloride (Nss 500ml) 500 ml @ 999 mls/hr Q31M STAT IV 01/22/17 19:21 01/22/17 19:51 DC 01/22/17 20:04 999 MLS/HR ED Course The patient was evaluated. The patient was placed on a monitor and continuous pulse ox. Portable chest x-ray was ordered and interpreted by the radiologist and myself as above without any acute findings. the patient was given 1 L normal saline wide-open. The patient was given morphine 4 IV and Zofran 4 mg IV. CBC differential, renal profile, LFTs and lipase levels were ordered. Blood cultures 2 was ordered. Lactic acid was ordered. heart tones were ordered. While the labs are being drawn the patient went into SVT with a rate of 160. Dr. Penaloza and myself again reevaluated the patient. He agree with treatment plan. The patient was given adenosine 6 mg IV push 2 her rate would go down to 120 and then go immediately back up into the 160s. The patient was given additional liter of saline and her rate started dropping down to 130. I have personally spent greater than 30 minutes of critical care time in the direct management of this patient. This includes bedside care, interpretation of diagnostic studies, and testing, discussion with consultants, patient, and family members, and other required patient management activities. This 30 minutes is in excess of all separately billable procedures. During this time I was bedside with the patient in excess of 30 minutes. The patient appeared comfortable. Venous Dopplers of both legs were ordered portable and interpreted by the radiologist as above without any evidence of DVT bilaterally. A complete ultrasound of the abdomen was ordered and interpreted by the radiologist as above with mild right hydronephrosis, no other acute abnormality was noted.. The patient's lactic acid came back as 2.1. Urinalysis revealed positive bacteria positive leukocytes positive nitrates and positive blood. All labs are reviewed. White count was elevated at over 13,000. Treatment plan was discussed with Dr. Penaloza. The patient was given Rocephin 1 g IV and vancomycin 1 g IV. The patient was reevaluated on multiple occasions throughout her ER stay. The patient was informed of all findings. The hospitalist was consulted for admission. Impression Primary Impression: UTI (urinary tract infection) Additional Impressions: Hydronephrosis of right kidney Sepsis Departure Information Dispostion Being Evaluated By Hospitalist Condition GOOD Referrals No Doctor, Assigned (PCP) Patient Instructions My [facility] Problem Qualifiers Primary Impression: UTI (urinary tract infection) Hematuria presence: with hematuria Additional Impressions: Sepsis Sepsis type: sepsis due to unspecified organism Qualified Codes: A41.9 - Sepsis, unspecified organism
== END 2017-01-23 13:30 | disposition short-term general hospital (02) | DRG 781 ==
LOC: ENRESERVTM → ENRESERVDT → C.EDB 16:27 → C.2T 20:10 → EDBEDREQ 20:15
PROVIDERS: ADMIT Family Medicine; ATTEND Family Medicine
DX: O98.812 Other maternal infectious and parasitic diseases complicating pregnancy, second trimester (principal); A41.9 Sepsis, unspecified organism; J18.9 Pneumonia, unspecified organism; O26.832 Pregnancy related renal disease, second trimester; N17.9 Acute kidney failure, unspecified; N13.8 Other obstructive and reflux uropathy; N20.1 Calculus of ureter; O99.412 Diseases of the circulatory system complicating pregnancy, second trimester; I47.1 Supraventricular tachycardia; O23.42 Unspecified infection of urinary tract in pregnancy, second trimester; O99.512 Diseases of the respiratory system complicating pregnancy, second trimester; R07.9 Chest pain, unspecified; O26.892 Other specified pregnancy related conditions, second trimester; R19.7 Diarrhea, unspecified; O21.9 Vomiting of pregnancy, unspecified; E87.6 Hypokalemia; B96.20 Unspecified Escherichia coli [E. coli] as the cause of diseases classified elsewhere; R06.02 Shortness of breath; O26.52 Maternal hypotension syndrome, second trimester; R50.9 Fever, unspecified; Z3A.18 18 weeks gestation of pregnancy; Z79.899 Other long term (current) drug therapy; O99.282 Endocrine, nutritional and metabolic diseases complicating pregnancy, second trimester

== ENCOUNTER 2017-07-03 08:26 | Inpatient (IN) | payer OTHER ==
[~2017-07-03] VITALS: Ht 165.1 cm; Wt 65.9 kg
[~2017-07-03 08:26] MED LIST: ACET-1311 PO; GUAISYP4 PO; NF406 PO
[2017-07-03] MEDS ORDERED: LACTATED RINGER'S 1000ML 1,000 ML IV PRN (09:10)
[2017-07-03] MEDS ORDERED: LACTATED RINGER'S 1000ML 1,000 ML IV SCH ×2 (09:10→17:09)
[2017-07-03 09:52] LABS: HEMATOCRIT 37.6 % (37-47); MEAN CELL VOLUME 84.7 fL (80-100); MEAN CORPUSCULAR HEMOGLOBIN 29.7 pg (25-34); MEAN CORPUSCULAR HGB CONC 35.1 g/dl (32-36); MEAN PLATELET VOLUME 11.6 fL (7.4-10.4); PLATELET COUNT 223 K/uL (130-400); RED BLOOD COUNT 4.44 M/uL (4.2-5.4); WHITE BLOOD COUNT 11.41 K/uL (4.8-10.8)
[2017-07-03] MEDS ORDERED: MISOPROSTOL 25 MCG TAB PV ONE (10:00)
[2017-07-03] MEDS ORDERED: MISOPROSTOL 25 MCG TAB ONE (10:02)
--- NOTE | 2017-07-03 10:02 | Progress Note ---
Progress Note Date of Service Jul 03, 2017. Progress Note Admit note 26 F P1001 at 41.2 weeks admitted for post-dates induction of labor. Cervix 2/ 60/-3/vertex/posterior/soft/intact. GBS negative. FHT Cat 1. Will start induction with Cytotec 25 mcg. vaginally. EFW 7.5-8lbs. Anticipate vaginal delivery.
[2017-07-03] MEDS ORDERED: PRENTAB26 PO (10:47)
[2017-07-03 10:48] VITALS: Ht 165.1 cm; Wt 65.9 kg
[2017-07-03] MEDS ORDERED: LACTATED RINGER'S 1000ML 500 ML IV PRN ×2 (14:54→16:14)
[2017-07-03] MEDS ORDERED: OXYTOCIN 30 UNITS/500ML NSS IV PRN ×2 (15:00→17:15)
[2017-07-03] MEDS ORDERED: EpHEDrine SULFATE INJ 50 MG/ML AMP ONE (15:10)
[2017-07-03] MEDS ORDERED: BUPIVACAINE 0.25% 30 ML VIAL ONE (15:10)
[2017-07-03] MEDS ORDERED: FENTANYL CITRATE INJ 50 MCG/1 ML 2 ML VIAL ONE (15:11)
[2017-07-03] MEDS ORDERED: FENTANYL 2MCG/ML ROPIV 1.25MG/ML 100ML BAG EPI ONE (15:11)
[2017-07-03] MEDS ORDERED: NALOXONE HCL INJ 1 MG in SODIUM CHLORIDE 0.9% 1000ML 1,000 ML IV PRN (16:14)
[2017-07-03] MEDS ORDERED: EpHEDrine SULFATE INJ 50 MG/ML AMP IV PRN (16:15)
[2017-07-03] MEDS ORDERED: NALBUPHINE HCL INJ 10 MG/ML AMP IV PRN (16:15)
[2017-07-03] MEDS ORDERED: DiphenhydrAMINE HCL 50 MG/ML VIAL IV PRN (16:15)
[2017-07-03] MEDS ORDERED: FENTANYL 2MCG/ML ROPIV 1.25MG/ML 100ML BAG EPI PRN (16:15)
[2017-07-03] MEDS ORDERED: NALOXONE HCL INJ 0.4 MG/1 ML VIAL/CARP IV PRN (16:15)
[2017-07-03] MEDS ORDERED: PROMETHAZINE HCL INJ 25 MG in SODIUM CHLORIDE 0.9% 50ML 50 ML IV PRN (16:15)
[2017-07-03] MEDS ORDERED: ONDANSETRON INJ 2 MG/ML 2 ML VIAL IV PRN (16:15)
[2017-07-03] MEDS ORDERED: LANOLIN OINT EXT PRN ×2 (17:15)
[2017-07-03] MEDS ORDERED: HYDROCORTISONE ACETATE 25 MG SUPP PR PRN (17:15)
[2017-07-03] MEDS ORDERED: MEASLES, MUMPS & RUBELLA VIRUS VIAL SQ. ONE (17:15)
[2017-07-03] MEDS ORDERED: BENZOCAINE 20% AER SPR 82.5 GM CAN EXT PRN (17:15)
[2017-07-03] MEDS ORDERED: SUPERCREAM 0.870 % 15GM JAR EXT PRN (17:15)
[2017-07-03] MEDS ORDERED: ACETAMINOPHEN 325 MG TAB PO PRN (17:15)
[2017-07-03] MEDS ORDERED: DIPHTHERIA/TETANUS/PERTUSSIS 0.5 ML SYR/VIAL IM. ONE (17:15)
--- NOTE | 2017-07-03 17:16 | Vaginal Delivery Summary ---
Vaginal Delivery Summary live male over intact perineum with Apgars 8/9. Delayed cord clamping and cord blood collection followed by spontaneous delivery of intact placenta. No tears. EBL 100 ml. Final sponge and instrument count is correct. Mom and baby stable.
--- NOTE | 2017-07-03 18:18 | Anesthesia Procedure Note ---
Anesthesia Epidural Removal Nt Date & Time Jul 03, 2017 at 18:17 Vital Signs Pain Intensity: 0.0 Notes Mental Status: alert / awake / arousable, participated in evaluation Nausea / Vomiting: adequately controlled Pain: adequately controlled Airway Patency, RR, SpO2: stable & adequate BP & HR: stable & adequate Hydration State: stable & adequate Neuraxial Anesthesia: was administered, sensory block is resolving Anesthetic Complications: no major complications apparent, pt satisfied with anesthetic care Epidural: removed without complications, with tip intact
[2017-07-03 21:00] VITALS: BP 101/66; PULSE 89; TEMP 36.7
[2017-07-03] MEDS: DOCUSATE SODIUM 100 MG CAP PO SCH (21:11)
[2017-07-04 00:05] VITALS: BP 103/67; PULSE 68; TEMP 36.8
[2017-07-04] MEDS: IBUPROFEN 600 MG TAB PO PRN ×3 (03:28→22:06)
[2017-07-04 04:05] VITALS: BP 108/74; PULSE 88; TEMP 36.7
[2017-07-04 07:45] VITALS: BP 99/65; PULSE 79; TEMP 36.7; O2SAT 96
[2017-07-04] MEDS: DOCUSATE SODIUM 100 MG CAP PO SCH ×2 (08:22→20:47)
[2017-07-04] MEDS: FERROUS SULFATE 325 MG TAB PO SCH (08:22)
[2017-07-04] MEDS: PRENATAL VITAMIN TAB PO SCH (08:22)
--- NOTE | 2017-07-04 09:03 | OB/GYN Progress Note ---
CREDIT INVESTIGATOR Progress Note Date of Service: Jul 04, 2017. Patient is seen and examined. She feels well, no complaints. Ambulating without dizziness Voiding without difficulty Tolerating regular diet with out N&V Bleeding is minimal No fever/ chills/ CP/ SOB/ N&V/ Leg pain Breast feeding without problems Date Time Temp Pulse Resp B/P (MAP) Pulse Ox O2 Delivery O2 Flow Rate FiO2 07/04/17 07:45 36.7 79 20 99/65 (76) 96 Room Air 07/04/17 07:45 Room Air 07/04/17 04:05 36.7 88 18 108/74 (85) Room Air 07/04/17 00:05 Room Air 07/04/17 00:05 36.8 68 16 103/67 (79) Room Air 07/03/17 21:00 36.7 89 18 101/66 (78) Room Air Last 24 Hours Test 07/03/17 09:37 07/04/17 06:44 White Blood Count 11.41 K/uL Red Blood Count 4.44 M/uL Hemoglobin 13.2 g/dL 12.6 g/dL Hematocrit 37.6 % 38.0 % Mean Corpuscular Volume 84.7 fL Mean Corpuscular Hemoglobin 29.7 pg Mean Corpuscular Hemoglobin Concent 35.1 g/dl RDW Standard Deviation 41.0 fL RDW Coefficient of Variation 13.3 % Platelet Count 223 K/uL Mean Platelet Volume 11.6 fL PE: General: Alert, orientedx3, NAD Abd: soft, NT, fundus firm, below Umbilicus Perineum intact, Lochia rubra minimal Ext; NT, no edema AP: 26 yo s/p , ppd# 1 VSS Afebrile doing well Continue routine care All questions were answered D/C home tomorrow
[2017-07-04] MEDS ORDERED: NURSING VERBAL MED ORDER ONE (11:30)
[2017-07-04 11:45] VITALS: BP 115/75; PULSE 81; TEMP 36.6
[2017-07-04] MEDS ORDERED: CALCIUM CARBONATE 500 MG CHEWABLE PO PRN (11:45)
[2017-07-04 15:14] VITALS: BP 106/70; PULSE 89; TEMP 36.5
[2017-07-04] MEDS ORDERED: BISACODYL 5 MG TABEC PO SCH (20:00)
[2017-07-05] MEDS ORDERED: BISACODYL 10 MG SUPP PR PRN (07:00)
[2017-07-05] MEDS: FERROUS SULFATE 325 MG TAB PO SCH (08:27)
[2017-07-05] MEDS: DOCUSATE SODIUM 100 MG CAP PO SCH (08:27)
[2017-07-05] MEDS: PRENATAL VITAMIN TAB PO SCH (08:27)
--- NOTE | 2017-07-05 08:32 | OB/GYN Progress Note ---
NOODLE CATALYST MAKER Progress Note Date of Service Jul 05, 2017. Subjective conversation w/ patient, physical exam Ambulation: ambulating normally Voiding: no voiding problems Passing Gas: Yes Diet Tolerance: Regular Diet Lochia: Moderate Feeding Type: Breast Feeding Review of Systems Constitutional: No fever, No chills, No sweats, No weight loss, No weakness, No fatigue, No problem reported Respiratory: No cough, No sputum, No wheezing, No shortness of breath, No dyspnea on exertion, No dyspnea at rest, No hemoptysis, No problem reported Cardiac: No chest pain, No orthopnea, No PND, No edema, No claudication, No palpitations, No problem reported Breast: No see HPI, No breast lump, No change in shape, No nipple discharge, No breast pain, No problem reported Abdomen: No pain, No nausea, No vomiting, No diarrhea, No constipation, No GI bleeding, No problem reported Female : No see HPI, No dysuria, No urinary frequency, No hematuria, No incontinence, No abnormal vaginal bleeding, No vaginal discharge, No problem reported Objective Vital Signs Date Time Temp Pulse Resp B/P (MAP) Pulse Ox O2 Delivery O2 Flow Rate FiO2 07/04/17 23:25 Room Air 07/04/17 15:14 Room Air 07/04/17 15:14 36.5 89 20 106/70 (82) Room Air 07/04/17 11:45 36.6 81 14 115/75 (88) Room Air Physical Exam General Appearance: WELL-APPEARING, WD/WN, NO APPARENT DISTRESS Respiratory/Chest: chest non-tender, lungs clear, normal breath sounds, no respiratory distress, no accessory muscle use Cardiovascular: regular rate, rhythm, no edema, no gallop, no JVD, no murmur Abdomen: normal bowel sounds, non tender, soft, no organomegaly, no pulsatile mass Fundus: Firm Extremities: normal range of motion, non-tender, normal inspection, no pedal edema, no calf tenderness Assessment and Plan Day Number: 2 Continue Routine Care: VD day #2 Pt doing well disch home with instructions
[2017-07-05] MEDS ORDERED: MTR600X PO (08:33)
[2017-07-05 08:40] VITALS: BP 109/73; PULSE 101; TEMP 36.5; O2SAT 99
--- NOTE | 2017-07-05 08:44 | Discharge Instructions ---
Discharge Instructions Date of Service Jul 05, 2017. Admission Reason for Admission: Induction Discharge Discharge Diagnosis / Problem: Discharge Goals Goal(s): Routine recovery after delivery, Routine recovery after surgery Activity Recommendations Activity Limitations: as noted below ACTIVITY RECOMMENDATIONS: * Gradual return to full activity over the next 2-3 weeks. * No lifting - nothing heavier than baby over the next 2-3 weeks. * Do not engage in vigorous exercise, sexual activity or sports until cleared by your physician. * Do not drive or operate any motorized equipment until cleared by your physician. * You may shower/bathe daily. BREAST CARE: If you are not breast feeding: * Wear a supportive bra 24 hours a day for one to two weeks. * Avoid stimulating your breasts and nipples as much as possible during the first few weeks after delivery. * When taking a shower, have the warm water hit your back, not breasts. * When your breasts feel full, apply ice packs. Usually three to four times a day helps ease the discomfort. * Take a mild pain medication (Tylenol/Motrin) when you are uncomfortable. If breast feeding: * Use breast milk to lubricate nipples. Lansinoh cream may be used for sore nipples. You do not need to remove cream prior to breast feeding. If using a different brand of cream, check the label for directions regarding removal of cream prior to nursing. * Wear a supportive bra. * If having problems with breasts or breast feeding, call a procurement consultant or your health care provider. EPISIOTOMY CARE: After delivery, if you have an episiotomy (stitches), the following steps will ease discomfort and aid healing. * For the first 24 hours after delivery, place ice packs next to your episiotomy to help reduce swelling. * After the first 24 hour-period, sitz baths, either portable or in the tub, are suggested. A shower with a shower arm sprayed over the episiotomy may be comforting. * [place]ana[place] care should be done after each voiding and bowel movement. Squirt warm water from a plastic bottle over the perineum (region of the body between the anus and urinary opening) and pat dry. * Use Dermoplast to ease discomfort. Shake container. [place] directly over the episiotomy. * Place a Tucks on a clean sanitary pad next to your episiotomy. OVER THE COUNTER MEDICATION: * For discomfort or pain, you may use Acetaminophen (Tylenol), Ibuprofen (Advil ), or Naproxen (Aleve) following the package directions. * For constipation you may use Colace following the package directions. SPECIAL CARE INSTRUCTIONS: When you are discharged from the hospital, it is important for you to follow the instructions listed below: * During the first week at home, you should be able to care for yourself and your baby. In addition, the usual light household activities are encouraged. * Limit your activities to the way you feel. Do not try to clean the house or move furniture. Be sensible. * If you actively engage in sports and have done so up until the time of your delivery, you may resume these activities as soon as you feel able. This may take up to one month or even longer. Use good judgment. * Continue to take your vitamins for at least six weeks after the of your baby. * Your diet need not be limited unless you were on a special diet before your delivery. Breast-feeding mothers need around 2500 calories per day and at least 64-80 ounces of fluid per day (8 to 10 glasses). * You should eat foods from the four major food groups. Crash diets or fad diets are to be avoided. Eating lean meats, fresh fruits and vegetables, low-fat dairy products, high fiber foods and a regular exercise program, will help you get back to your pre- weight without putting your health at risk. * Constipation is sometimes a problem after delivery. Take a mild laxative as needed. If breast feeding, Milk of Magnesia is acceptable to use. You may use a suppository or Fleets enema if no episiotomy. * A daily shower or tub bath is suggested. Be sure to thoroughly and gently dry the perineum. * A bloody vaginal discharge will usually continue until around four weeks post . A small amount of bleeding may continue for as long as six weeks. Vaginal discharge changes from the bright red bleeding after delivery to pink then brownish and finally yellowish-pink before becoming white and disappearing. * Bleeding may increase with activity. Your first period may come in 4-8 weeks. If you are breast feeding, your period may be delayed even longer. * [place] (sex) can begin whenever both you and your partner feel comfortable and do not have any form of genital infection. It is recommended that you wait until after your return appointment and discuss with your physician. If you have questions, please talk to your health care practitioner. A condom should be used to prevent infection and . * Foreplay, gentle intercourse and lubrication is very important the first several times to prevent pain. A water-based lubricant such as K-Y jelly or Astroglide may be used. * Tampons may be used six weeks after delivery. * Douching should be avoided for 6 weeks after delivery. * If you have RH negative blood and your baby is RH positive, you will receive RHOGAM by injection prior to discharge. The nurse will give you a card to keep with you that has the date and place that you received RHOGAM after delivery. * During your care, you had a Rubella screen done to check for the presence of rubella antibodies in your blood. If your test was negative, you will receive a Rubella vaccine prior to discharge. This vaccine may cause a fever, soreness at the injection site and flu-like symptoms. If these symptoms persist, notify your health care practitioner. is not advised for three months after a Rubella vaccine. There is a higher chance of having a baby with defects if conceived within three months of getting the vaccine. * If you were discharged 24 hours from delivery or before 48 hours: Visiting nurses will come to your home 48 hours after discharge to assess you and your baby. The visiting nurse will meet with you while you are in the hospital to arrange a time and get directions to your home. * Verbalizes understanding of car seat law as reviewed with patient nursing. * Car Seat hand-out given and reviewed with patient by nursing. * Shaken baby information reviewed with patient by nursing. Call you doctor if: * Heavy bleeding (saturating several pads an hour) or passing clots the size of your fist. * A fever >101 degrees F (38.3 degrees C) on two occasions four hours apart and/or chills. * Unusual pain in the pelvic or vaginal areas. * "Baby Blues" lasting longer than two weeks. If you have any questions or concerns, call your health care practitioner at . FOLLOW-UP VISIT: * Please call the office at to schedule a 6 week examination. It is important you keep this appointment. * It is important for you to make arrangements for either yearly or twice yearly check-ups thereafter. . Current Hospital Diet Patient's current hospital diet: Regular OB Diet Discharge Diet Recommended Diet: Regular Diet Pending Studies Studies pending at discharge: no Medical Emergencies . Who to Call and When: Medical Emergencies: If at any time you feel your situation is an emergency, please call 911 immediately. . Non-Emergent Contact Non-Emergency issues call your: Specialist . . "Provider Documentation" section prepared by Alex Sterling. . VTE Core Measure Inpt VTE Proph given/why not?: Treatment not indicated
[2017-07-05 16:30] VITALS: BP 107/72; PULSE 98; TEMP 36.6; O2SAT 98
[2017-07-05 16:45] VITALS: BP_DIAS 72; PULSE 98; TEMP 36.6
== END 2017-07-05 16:58 | disposition home or self-care (01) | DRG 775 ==
LOC: C.LD 08:26 → C.OBG 20:50
PROVIDERS: ADMIT Obstetrics & Gynecology; ATTEND Obstetrics & Gynecology
PROC: 10E0XZZ Delivery of Products of Conception, External Approach (ICD-10-PCS; principal; 2017-07-03)
PROC: 3E033VJ Introduction of Other Hormone into Peripheral Vein, Percutaneous Approach (ICD-10-PCS; principal; 2017-07-03)
DX: O48.0 Post-term pregnancy (principal); Z3A.41 41 weeks gestation of pregnancy; Z37.0 Single live birth